=== PATIENT | female | born 1965 | race Two or more races ===

== ENCOUNTER → 2024-05-06 | Outpatient (CLI) | payer MEDICAID, SELFPAY ==
--- NOTE | 2024-05-06 14:30 | XR_ITS ---
Examination: Diagnostic digital mammography, bilateral Computer aided detection 3-D breast Tomosynthesis, bilateral Date and time of exam: May 06, 2024 1442 hours INDICATIONS: Patient states bilateral breast pain beginning 4 months ago Technique: Nonmagnified MLO, CC views of the breasts to been obtained, reconstructed from 3-D Tomosynthesis images. R2 computer aided detection program utilized for evaluation of suspicious masses and/or abnormal calcifications. 3-D Tomosynthesis images obtained. Findings: Scattered areas of fibroglandular density. 8mm focal asymmetry inner left breast Benign calcifications Impression: BI-RADS Category 0: Incomplete: Need additional imaging evaluation 8 mm focal asymmetry inner left breast, recommend follow-up spot tomographic views as well as bilateral breast sonography to complete the workup.
== END | disposition home or self-care (01) ==
PROVIDERS: PCP Physician Assistant; Referring Provider Physician Assistant; Visit Provider Physician Assistant
DX: R92.8 Other abnormal and inconclusive findings on diagnostic imaging of breast (principal); N64.89 Other specified disorders of breast
CPT/HCPCS: 77062; 77066; G0279

== ENCOUNTER → 2024-10-13 | Outpatient (CLI) | payer MEDICAID, SELFPAY ==
--- NOTE | 2024-10-13 09:30 | XR_ITS ---
Examination: Breast ultrasound complete, bilateral Date and time of exam: October 13, 2024 0921 hours INDICATIONS: Mammogram May 18, 2024 8 mm focal asymmetry inner left breast Technique: Real-time grayscale ultrasonographic imaging bilateral breasts, including all 4 quadrants as well as nipple retroareolar and axillary regions. Findings: Sonographic images right breast No cystic or solid mass Sonographic images left breast 9:00 nodule circumscribed 5 x 7 mm IMPRESSION: BI-RADS Category 3: Probably benign findings One additional 6 month left breast sonogram follow-up is needed
--- NOTE | 2024-10-13 10:30 | XR_ITS ---
Examination: Diagnostic digital mammography, unilateral, left Computer aided detection 3-D breast Tomosynthesis, unilateral Date and time of exam: October 13, 2024 0953 hours INDICATIONS: Mammogram May 06, 2024 8 mm focal asymmetry inner left breast Technique: Nonmagnified MLO, CC views of the left breast have been obtained, reconstructed from 3-D Tomosynthesis images. R2 computer aided detection program utilized for evaluation of suspicious masses and/or abnormal calcifications. 3-D Tomosynthesis images obtained. Findings: Scattered areas of fibroglandular density Focal asymmetry remains inner left breast Impression: BI-RADS category 3: Probably benign findings Recommend 1 additional 6 month left mammogram follow-up
== END | disposition home or self-care (01) ==
PROVIDERS: PCP Physician Assistant; Referring Provider Physician Assistant; Visit Provider Physician Assistant
DX: R92.332 Mammographic heterogeneous density, left breast (principal); N64.89 Other specified disorders of breast
CPT/HCPCS: 76641; 77061; 77065; G0279

== ENCOUNTER → 2025-04-28 | Outpatient (CLI) | payer BC, SELFPAY ==
--- NOTE | 2025-04-28 11:30 | XR_ITS ---
Examination: Breast ultrasound, unilateral, left Date and time of exam: April 28, 2025, 1142 hours INDICATIONS: Left breast sonogram 9:00 nodule 7 mm October 13, 2024 Technique: Real-time hough scale ultrasonographic imaging performed left breast including all 4 quadrants as well as nipple retroareolar and axillary region. Findings: 9:00 cyst 2 x 2 mm No solid nodules IMPRESSION: BI-RADS Category 2: Benign findings
== END | disposition home or self-care (01) ==
PROVIDERS: PCP Physician Assistant; Referring Provider Physician Assistant; Visit Provider Physician Assistant
DX: N63.20 Unspecified lump in the left breast, unspecified quadrant (principal)
CPT/HCPCS: 76641